=== PATIENT | female | born 1995 | race African-American/Black ===

== ENCOUNTER 2017-04-21 14:04 | Emergency (ER) | payer BC ==
[~2017-04-21] VITALS: Ht 162.6 cm; Wt 90.7 kg
[2017-04-21] MEDS ORDERED: ULTRAM 50MG TAB50 MG PO (14:37)
[2017-04-21] MEDS ORDERED: GENTAMICIN 0.1%15 G2 OPHTHALMIC (14:37)
== END 2017-04-21 14:48 | disposition home or self-care (01) ==
LOC: ER 14:04
DX: H10.9 Unspecified conjunctivitis (principal)

== ENCOUNTER 2017-07-09 14:34 | Emergency (ER) | payer OTHER ==
[~2017-07-09] VITALS: Ht 160 cm; Wt 90.7 kg
[~2017-07-09 14:34] MED LIST: GENTAMICIN 0.1%15 G2 OPHTHALMIC; ULTRAM 50MG TAB50 MG PO
[2017-07-09] MEDS ORDERED: BUTALB-APAP-CA1 EACH PO (17:03)
[2017-07-09 18:02] VITALS: BP 134/75
== END 2017-07-09 18:05 | disposition home or self-care (01) ==
LOC: ER 14:34
DX: G43.909 Migraine, unspecified, not intractable, without status migrainosus (principal)

== ENCOUNTER 2017-11-17 15:25 | Emergency (ER) | payer OTHER ==
[~2017-11-17] VITALS: Ht 162.6 cm; Wt 90.7 kg
[~2017-11-17 15:25] MED LIST changes: +BUTALB-APAP-CA1 EACH PO
[2017-11-17] MEDS ORDERED: AMOXICILLIN 50500 MG PO (15:49)
[2017-11-17] MEDS ORDERED: IBUPROFEN 800800 M1 PO (15:49)
[2017-11-17 16:03] VITALS: BP 132/85
== END 2017-11-17 16:04 | disposition home or self-care (01) ==
LOC: ER 15:25
DX: K08.89 Other specified disorders of teeth and supporting structures (principal); F17.210 Nicotine dependence, cigarettes, uncomplicated

== ENCOUNTER 2017-11-27 12:17 | Emergency (ER) | payer OTHER ==
[~2017-11-27] VITALS: Ht 162.6 cm; Wt 90.7 kg
[~2017-11-27 12:17] MED LIST changes: +AMOXICILLIN 50500 MG PO; +IBUPROFEN 800800 M1 PO
[2017-11-27] MEDS ORDERED: ULTRAM 50MG TAB50 MG PO (13:52)
[2017-11-27 14:01] VITALS: BP 162/101
== END 2017-11-27 14:01 | disposition home or self-care (01) ==
LOC: ER 12:17
DX: S63.611A Unspecified sprain of left index finger, initial encounter (principal); S00.83XA Contusion of other part of head, initial encounter; S09.90XA Unspecified injury of head, initial encounter; F17.210 Nicotine dependence, cigarettes, uncomplicated; W26.1XXA Contact with sword or dagger, initial encounter; Y93.89 Activity, other specified; Y92.89 Other specified places as the place of occurrence of the external cause; Y99.8 Other external cause status

== ENCOUNTER 2018-09-28 20:33 | Emergency (ER) | payer OTHER ==
[~2018-09-28] VITALS: Ht 162.6 cm; Wt 90.7 kg
[2018-09-28 21:05] LABS: URINE BLOOD TRACE (Negative); URINE CLARITY CLOUDY; URINE COLOR YELLOW; URINE GLUCOSE-RANDOM* NEGATIVE (Negative); URINE KETONES NEGATIVE (Negative); URINE LEUKOCYTES-REFLEX TRACE (Negative); URINE NITRITE-REFLEX NEGATIVE (Negative); URINE PROTEIN (DIPSTICK) 2+ (Negative); URINE SPECIFIC GRAVITY >= 1.030 (1.005-1.035)
[2018-09-28 21:06] LABS: ICTOTEST (BILI CONFIRMATORY) Negative (Negative); URINE BILIRUBIN NEGATIVE (Negative)
[2018-09-28 21:18] LABS: CRYSTALS None Seen /LPF (None Seen); MUCUS >6 Heavy strn/LPF (None Seen); SQUAMOUS >10 Many /LPF (0-3); URINE RBC 0-2 Rare /HPF (0-2)
[2018-09-28 21:19] LABS: FINE GRANULAR CASTS 0-3 Few /LPF (None Seen)
[2018-09-28] MEDS ORDERED: KEFLEX250 MG/5 M PO (21:20)
[2018-09-28 21:45] VITALS: BP 159/81
== END 2018-09-28 21:45 | disposition home or self-care (01) ==
LOC: ER 20:33
PROVIDERS: Emergency Medicine
DX: N75.0 Cyst of Bartholin's gland (principal); F17.210 Nicotine dependence, cigarettes, uncomplicated

== ENCOUNTER 2018-09-30 07:53 | Emergency (ER) | payer OTHER ==
[~2018-09-30] VITALS: Ht 162.6 cm; Wt 90.7 kg
[~2018-09-30 07:53] MED LIST changes: +KEFLEX250 MG/5 M PO
[2018-09-30 08:40] LABS: HEMOGLOBIN 12.5 gm/dL (12.0-15.0); MCH 30.6 pg (26.0-34.0); MCHC 33.7 g/dL (28.0-37.0); MCV 90.7 fL (80.0-100.0); PLATELET COUNT 222 thou/uL (150-400); RBC 4.08 mil/uL (4.20-5.00); WBC 13.7 thou/uL (4.0-11.0)
[2018-09-30 08:47] LABS: CALCIUM 10.3 mg/dL (8.5-10.1); CREATININE 0.8 mg/dL (0.6-1.0); POTASSIUM 3.7 mmol/L (3.5-5.1)
[2018-09-30 09:11] LABS: ABSOLUTE NEUTROPHILS 11.1 thou/uL (1.4-8.2)
[2018-09-30] MEDS ORDERED: CLEOCIN HCL300 MG PO (09:25)
[2018-09-30] MEDS ORDERED: CEFIXIME400 MG PO (09:25)
[2018-09-30 09:27] VITALS: BP 155/92
[2018-09-30 15:35] LABS: URINE BILIRUBIN NEGATIVE (Negative); URINE BLOOD NEGATIVE (Negative); URINE CLARITY CLOUDY; URINE COLOR YELLOW; URINE GLUCOSE-RANDOM* NEGATIVE (Negative); URINE KETONES TRACE (Negative); URINE LEUKOCYTES-REFLEX NEGATIVE (Negative); URINE NITRITE-REFLEX NEGATIVE (Negative); URINE PROTEIN (DIPSTICK) 1+ (Negative)
[2018-09-30 15:44] LABS: AMORPHOUS URATES Many /LPF (None Seen); BACTERIA-REFLEX None Seen /HPF (None Seen); CASTS None Seen /LPF (None Seen); SQUAMOUS 0-3 Few /LPF (0-3); URINE RBC 0-2 Rare /HPF (0-2); URINE WBC-REFLEX 0-5 Rare /HPF (0-5)
== END 2018-09-30 09:27 | disposition home or self-care (01) ==
LOC: ER 07:53
PROVIDERS: Emergency Medicine
DX: N75.1 Abscess of Bartholin's gland (principal); F17.210 Nicotine dependence, cigarettes, uncomplicated